=== PATIENT | male | born 1940 | race Caucasian/White ===

== ENCOUNTER 2017-06-05 15:00 | Inpatient (IN) ==
[2017-06-05 15:48] LABS: Basophils % 0.4 % (0.0-0.8); Eosinophils # 0.1 10*3/uL (0.0-0.87); Eosinophils % 4.2 % (0.00-10.9); Immature Granulocytes % 2.1 %; Immature Granulocytes Absolute 0.05 #; Lymphocytes # 1.7 10*3/uL (1.4-4.0); Lymphocytes % 73.4 % (21.2-54.2); Mean Corpuscular HGB Conc 33.9 GM/DL (32-36); Mean Corpuscular Hemoglobin 40 PG (27-34); Mean Corpuscular Volume 118.7 FL (87-102); Mean Platelet Volume 12.5 FL (9.6-12.0); Monocytes # 0.1 10*3/uL (0.11-0.8); Monocytes % 3.8 % (1.7-12.7); NRBC # 0.02 10*3/uL; Neutrophils # 0.4 10*3/uL (1.4-7.4); Neutrophils % 16.1 % (38.7-73.9); Platelet Count 51 T/CUMM (130-400); Red Blood Count 1.39 MC/CUMM (3.8-5.5); Red Cell Distribution Width 16.8 % (9.3-17.3); White Blood Count 2.4 T/CUMM (4-12)
[2017-06-05 15:52] LABS: Hemoglobin 5.6 GM/DL (14.0-18.0)
[2017-06-05 15:53] LABS: Hematocrit 16.5 VOL% (42.0-52.0)
--- NOTE | 2017-06-05 16:06 | XRay Report ---
Exam: XR chest 2V Indication: Shortness of breath Comparison study: November 22, 2012 chest radiograph Findings: Lungs are hyperexpanded with diffuse mild interstitial prominence and focal opacity/scarring within the lateral left upper lobe. The heart, mediastinum and bony structures are stable from prior. Atherosclerotic changes of the thoracic aorta appears similar to prior. On the lateral view, there are posterior basilar opacities and mild elevation of the left hemidiaphragm, which is essentially unchanged. There is no focal consolidation, pneumothorax or pleural effusion identified. Impression: Diffuse interstitial scarring changes with focal scarring in the lateral left upper lobe and left lung base which appears essentially unchanged from prior. No other significant interval change or evidence of acute disease. PROCEDURE INTERPRETED AT [facility] DEPARTMENT OF RADIOLOGY Final Report Signed by: Bandar Patterson
[2017-06-05 16:17] LABS: Albumin 3.8 G/DL (3.4-5.0); Bilirubin,Total 0.6 MG/DL (0.2-1.0); Calcium 9.1 MG/DL (8.5-10.1); Magnesium 2.8 MG/DL (1.8-2.4); Osmolality,Calculated 282.7 MOS/KG (273-304); Potassium 5.1 MMOL/L (3.5-5.1); Total Protein 7.4 G/DL (6.4-8.3)
[2017-06-05 16:18] LABS: Troponin I Only 0.062 NG/ML (0.00-0.045)
[2017-06-05 16:21] LABS: PT Patient Result 10.6 SECS
[2017-06-05 16:28] LABS: D-Dimer 6.1 MG/L FEU
--- NOTE | 2017-06-05 16:55 | Emergency Department Note ---
I, Bertha Holbrook, am scribing for, and in the presence of, Dean Daniel MD 16:41. IFredy Hans, MD, personally performed the services described in this documentation, ascribed by Bertha Holbrook in my presence, and it is both accurate and complete 654 . Arrival - Arrival Chief Complaint: Shortness of Breath Stated Complaint: O2 low/body ache/dizziness ED Nursing Triage Note: pt reports has been sob for awhile. was seen at [facility] today and o2 sats were low and they sent pt over to er. pt denies any pain reports some body aches. pt reports sob worse on exertion. pt family reports increased weakness over the past two years. o2 sats in triage are 100j percent.pt reports near syncope for several weeks too. Mode of Arrival: Ambulatory Limitations: No Limitations Source: Patient Time Seen by Provider: 06/05/17 16:11 - History of Present Illness HPI Narrative: Pt is a 77 y/o male who came to ED with c/o weakness, dizziness, lower extremities numbness/abnormal gait that has been ongoing for 2 years but has worsened recently. Pt has only been seen only at OR that told him to increase PO intake, but states he does not have a PCP. Sister in law notes his gait is slow especially at an incline and usually unsteady due to dizziness. Pt sits with head between his legs to resolve his dizziness. Pt states he has had some weight loss of about 10 lbs in a year, decreased appetite, and chronic low SHAILA, but denies having, hematemesis, melena, or hematuria or abdomen pain. Pt is a long time smoker and usually half a pack to ppd. PMHx of pericardititis, 35 years ago abdomen surgery for nerve wrapped around intestines but no part of stomach removed, per pt. Onset (ago): year(s) Consistency: constant Severity: moderate Severity scale (1-10): 5 Quality: other (weakness) Allergies/Adverse Reactions: Allergies Allergy/AdvReac Type Severity Reaction Status Date / Time Iodinated Contrast Media - Allergy Unknown/Unable Verified 06/05/17 15:20 Oral and to obtain Review of System - Review of System 12 point system: reviewed and no additional remarkable complaints except as stated - Review of System Constitutional: Present: weakness. Absent: chills, fever Respiratory: Absent: respiratory distress Cardiovascular: Absent: chest pain Gastrointestinal: Present: other (decreased PO intake). Absent: abdominal pain , nausea, vomiting, hematemesis, melena Genitourinary male: Absent: hematuria Musculoskeletal: Absent: arm pain, neck pain Skin: Absent: rash Neurological: Present: abnormal gait, other (dizziness). Absent: headache, confusion, vertigo Medical,Surgical,& Family Hx - Medical History Cardio: History of: Hypertension, Cardiovascular Problems (pericarditis) - Surgical History Cardiac Surgeries: Sugical HX of: Cardiac Surgery (surgery for pericarditis 30 years ago) - Social History Smoking Status: Current every day smoker Marital Status: Single Functional capacity: independent ambulation Exam Vital Signs: Vital Signs Temperature 97.1 F L 06/05/17 15:12 Pulse Rate 75 06/05/17 15:12 Respiratory Rate 22 06/05/17 15:12 Blood Pressure 125/75 06/05/17 15:12 O2 Sat by Pulse Oximetry 100 06/05/17 15:12 - General General appearance: alert, in no apparent distress - Head Head exam: Present: atraumatic, normocephalic - Eye Eye exam: Present: PERRL, EOMI, other (pale conjunctiva) - ENT ENT exam: Present: mucous membranes moist. Absent: mucous membranes dry - Neck Neck exam: Present: full ROM, trachea midline - Chest Chest inspection: Present: symmetric chest wall rise - Respiratory Respiratory exam: Present: normal lung sounds bilaterally. Absent: respiratory distress - Cardiovascular Cardiovascular exam: Present: regular rate, normal rhythm, normal heart sounds - Extremities Exam Extremities exam: Present: full ROM. Absent: tenderness, pedal edema - Neurological Exam Neurological exam: Present: alert, oriented X3, CN II-XII intact. Absent: motor sensory deficit - Psychiatric Psychiatric exam: Present: normal affect, normal mood - Skin Skin exam: Present: warm, dry Course Course Narrative: This patient was evaluated with lab work as well as EKG and chest x-ray. He had pancytopenia on his lab work and a macrocytic anemia with hemoglobin of 5.6. His lab work was also notable for an elevated d-dimer and elevated creatinine and a mildly elevated troponin which was minimally elevated and probably trivial with his creatinine elevation. EKG showed some ST depressions in lead II and V6 but no ST elevations. Patient is not having chest pain. Patient is not complaining of shortness of breath and has 100% oxygen saturation on room air. I do not recommend a CT angiogram of the chest given the low suspicion for PE and kidney dysfunction which would be worsened with IV contrast. The patient's symptoms are likely due to his severe anemia and I have discussed all of his lab work and his presentation with hospitalist on- call agreed to come and see him for admission. I did do a rectal exam which was guaiac negative. The patient does have a history of gastric surgery and certainly if he had a gastric resection he could have macrocytic anemia related to vitamin deficiency such as B12 but I will leave all this for the hospitalist to sort out what he is in the hospital. He has no leg swelling that would benefit from duplex ultrasound Results - Labs CBC & BMP: 06/05/17 15:25 06/05/17 15:25 Lab Results: I have reviewed the patients labs Labs: Laboratory Tests 06/05/17 06/05/17 06/05/17 15:25 15:25 15:25 WBC 2.4 L RBC 1.39 L Hgb 5.6 L* Hct 16.5 L* MCV 118.7 H MCH 40 H Plt Count 51 L MPV 12.5 H Neut % (Auto) 16.1 L Lymph % (Auto) 73.4 H Neut # (Auto) 0.4 L [place] # (Auto) 0.1 L INR 1.0 PT Patient/Control Mix 10.6 D-Dimer, Quantitative 6.1 Circ Anticoag PTT 34.0 Sodium 138 Potassium 5.1 Chloride 108 H Carbon Dioxide 23 BUN 36 H Creatinine 2.50 H GFR Calculation 25 Glucose 93 Magnesium 2.8 H AST 10 ALT 13 L Troponin I 0.062 H Globulin 3.6 H Albumin/Globulin Ratio 1.0 L - Diagnostic Findings Procedure: Chest x-ray: report reviewed by me (Diffuse interstitial scarring changes with focal scarring in the lateral left upper lobe and left lung base which appears essentially unchanged from prior. No other significant interval change or evidence of acute disease.) Disposition Clinical Impression: Symptomatic anemia Case discussed with: patient, patient's family Disposition: Still a Patient Condition: Stable Time of Disposition: 16:54
[2017-06-05 16:57] LABS: Eosinophils 5 % (0-10); Lymphocytes 70 % (20-55); Segmented Neutrophils 22 % (50-85); Total Cells Counted 100
[2017-06-05 16:58] LABS: Hypochromasia 2+; Microcytosis 2+; Platelet Estimate Decreased
[2017-06-05] MEDS ORDERED: SODIUM CHLORIDE 0.9% 250 ML IV PRN ×2 (17:58→20:27)
[2017-06-05] MEDS ORDERED: ONDANSETRON 4 MG/2 ML VIAL IV PRN (17:58)
[2017-06-05 18:46] LABS: Free T4 (Free Thyroxine) 1.21 NG/DL (0.76-1.46); Thyroid Stimulating Hormone 2.04 uIU/ml (0.358-3.74)
--- NOTE | 2017-06-05 18:46 | Hospitalist History & Physical ---
Assessment and Plan - Time spent with patient Time spent with patient: Greater than 30 minutes (1) Symptomatic anemia Status: Acute Assessment and plan: H&H 5 and 16. Type and screen. Order and transfuse 2 units of packed red blood cells. Anemia workup to include B12, folate, LDH, TSH and free T4, recheck count. Continue IV fluids. Current Visit: Yes (2) Pancytopenia Status: Acute Current Visit: Yes History of Present Illness Chief complaint: generalized fatigue, PCP referral History of present illness: Mr. Mann is a 77 year old white male with a past medical history significant for hypotension, pericarditis and tobacco use who presents to the ED today [facility] for low oxygen saturation and generalized fatigue. Patient reports this fatigue has been ongoing for about two years with associated dizziness, weakness, lower extremity numbness and abnormal gait. Patient notes that dizziness generally resolves with rest. He confirms some weight loss, decreased appetite. He denies headache, blurry vision, hematemasis , melena, hematuria, abdominal pain, nausea or vomiting, or syncope. He reports a smoking history of 1/2 pack to 1 ppd since the age of 17. On admission, his vitals are stable, however he is pancytopenic and anemic with H&H of 5.6 and 16.5. The case has been discussed with Dr. Daniel, ER physician, and Dr. Casanova , admitting physician, and the patient will be admitted to the hospital medicine service for further evaluation and treatment. CODE STATUS was discussed ; patient is a full code. Home medications have been reviewed and reconciled. Allergies Allergy/AdvReac Type Severity Reaction Status Date / Time Iodinated Contrast Media - Allergy Unknown/Unable Verified 06/05/17 15:20 Oral and to obtain Medical,Surgical,& Family Hx - Medical History Cardio: History of: Hypertension, Cardiovascular Problems (pericarditis) - Surgical History Cardiac Surgeries: Sugical HX of: Cardiac Surgery (surgery for pericarditis 30 years ago) - Family History Family History: Reports;: Family Heart Disease, Family Hypertension - Social History Smoking Status: Current every day smoker Frequency of Alcohol Use: None Type of Drug Use: None Marital Status: Single Lives With:: Sibling Functional capacity: independent ambulation 12 point system: reviewed and no additional remarkable complaints except as stated Exam - Constitutional Vitals: Period Temp Pulse Resp BP Sys/Gardner Pulse Ox Last 24 Hr 97.1 F-97.1 F 64-75 18-22 106-127/47-76 99-100 Exam: General appearance: normal weight, no acute distress - Head Head exam: Present: normocephalic, atraumatic - Eye Eye exam: Present: EOMI, pale conjunctiva Absent: conjunctival injection, nystagmus Pupils: Present: FRAN, normal accommodation - ENT ENT exam: Present: normal exam, normal external ear exam - Neck Neck exam: Present: normal inspection. Absent: lymphadenopathy, tenderness, thyromegaly - Respiratory Respiratory exam: Present: clear to auscultation bilaterally. Absent: rales, rhonchi, wheezes - Cardiovascular Cardiovascular exam: Present: regular rate and rhythm. Absent: carotid bruit, gallop, rubs - GI/Abdominal GI/Abdominal exam: Present: normal bowel sounds. Absent: ascites, distended, mass - Extremities Exam Extremities exam: Present: normal inspection, normal capillary refill. Absent: edema - Back Exam Back exam: Absent: CVA tenderness (L), CVA tenderness (R) - Neurological Exam Neurological exam: Present: alert, oriented X3, CN II-XII intact, reflexes normal - Psychiatric Psychiatric exam: Present: normal affect, normal mood - Skin Skin exam: Present: normal color, warm, dry Results - Labs CBC & BMP: 06/05/17 15:25 06/05/17 15:25 Lab Results: I have reviewed the past 24 hour labs
[2017-06-05 19:11] LABS: % Iron Saturation 34.8 % (18-50); Ferritin 518.5 ng/ml (26-388)
[2017-06-05 20:16] LABS: Eosinophils # 0.1 10*3/uL (0.0-0.87); Eosinophils % 4.6 % (0.00-10.9); Lymphocytes # 2.4 10*3/uL (1.4-4.0); Lymphocytes % 80.1 % (21.2-54.2); Mean Corpuscular HGB Conc 31.7 GM/DL (32-36); Mean Corpuscular Hemoglobin 39 PG (27-34); Mean Corpuscular Volume 123.7 FL (87-102); Mean Platelet Volume 12.1 FL (9.6-12.0); Monocytes # 0.1 10*3/uL (0.11-0.8); Monocytes % 1.7 % (1.7-12.7); NRBC # 0.02 10*3/uL; Neutrophils # 0.4 10*3/uL (1.4-7.4); Neutrophils % 13.6 % (38.7-73.9); Platelet Count 41 T/CUMM (130-400); Red Blood Count 1.35 MC/CUMM (3.8-5.5); Red Cell Distribution Width 17.1 % (9.3-17.3)
[2017-06-05 20:24] LABS: Hemoglobin 5.3 GM/DL (14.0-18.0)
[2017-06-05 20:25] LABS: Hematocrit 16.7 VOL% (42.0-52.0)
[2017-06-05] MEDS: SODIUM CHLORIDE 0.9% 1,000 ML IV SCH (20:47)
[2017-06-05 20:56] LABS: Folate > 24.0 NG/ML (5.4-24.0); Vitamin B12 382 PG/ML (211-911)
[2017-06-05 21:36] LABS: Sedimentation Rate-Westergren 145 MM/HR (0-20)
[2017-06-05 21:53] LABS: Eosinophils 5 % (0-10); Hypochromasia 2+; Lymphocytes 74 % (20-55); Microcytosis 2+; Nucleated Red Blood Cells 1 (0-5); Platelet Estimate Decreased; Segmented Neutrophils 19 % (50-85); Total Cells Counted 100
[2017-06-05 21:54] LABS: Polychromasia Slight
--- NOTE | 2017-06-06 05:53 | EKG Report ---
Stationary ECG Study [facility] ER Test Date: 06/05/2017 3:20:19 PM Pat Name: MOHAMUD FRAGA Department: Room: 428 Gender: M Loan Consultant: : 1940 Requested by: Dean Daniel Order Number: [id number] Reading MD: BHUMIKA LACKEY Intervals [place] Rate: 75 P: 72 NH: 154 QRS: 82 QRSD: 111 T: -59 QT: 379 QTc: 408 Interpretive Statements SINUS RHYTHM Electronically Signed On 06-06-17 13:52:44 CDT by BHUMIKA LACKEY [email or web address]
[2017-06-06 07:06] LABS: Eosinophils # 0.1 10*3/uL (0.0-0.87); Eosinophils % 6.6 % (0.00-10.9); Hematocrit 20.4 VOL% (42.0-52.0); Immature Granulocytes % 0.5 %; Immature Granulocytes Absolute 0.01 #; Lymphocytes # 1.4 10*3/uL (1.4-4.0); Mean Corpuscular HGB Conc 33.3 GM/DL (32-36); Mean Corpuscular Hemoglobin 35 PG (27-34); Mean Corpuscular Volume 106.3 FL (87-102); Mean Platelet Volume 12.2 FL (9.6-12.0); Monocytes % 1.5 % (1.7-12.7); Neutrophils # 0.4 10*3/uL (1.4-7.4); Neutrophils % 18.8 % (38.7-73.9); Platelet Count 37 T/CUMM (130-400); Red Cell Distribution Width 22.9 % (9.3-17.3)
[2017-06-06 07:18] LABS: Hemoglobin 6.8 GM/DL (14.0-18.0); Red Blood Count 1.92 MC/CUMM (3.8-5.5)
[2017-06-06 07:20] LABS: Lymphocytes % 72.6 % (21.2-54.2)
[2017-06-06] MEDS ORDERED: hydrOXYzine HCL 10 MG TABLET PO PRN (07:29)
[2017-06-06 07:35] LABS: Atypical Lymphocytes Few; Eosinophils 4 % (0-10); Hypochromasia 1+; Lymphocytes 69 % (20-55); Macrocytosis 1+; Platelet Estimate Decreased; Segmented Neutrophils 25 % (50-85); Total Cells Counted 100
[2017-06-06 07:39] LABS: Calcium 8.4 MG/DL (8.5-10.1); Osmolality,Calculated 287.3 MOS/KG (273-304); Potassium 5.6 MMOL/L (3.5-5.1)
--- NOTE | 2017-06-06 07:41 | Physician Query Form ---
CLICK EDIT DOCUMENT TO SELECT QUERY ANSWER --> OK --> SIGN Minoo Huggins RN, CCDS Certified Clinical Prototype Carpenter W) [phone] (f) [phone] [email or web address] PROVIDERS: Make your selection(s) from the choices in EACH section by typing an "x" and enter comments in the comment section. Please use your independent medical judgment in providing your response. This request does not imply that any particular answer is desired or expected. CLINICAL INDICATORS: (Providers should not edit this section) The medical record indicates that the patient was admitted with anemia, creatinine 2.50#, GFR of 25# and the patient receiving 2 units of blood. ------- -----"kidney dysfunction which would be worsened with IV contrast" Clarify which of the following most accurately represents the patient's renal status: ( x) Acute kidney injury (non-traumatic) ( ) Acute renal failure ( ) Acute renal failure with underlying Chronic Kidney Disease (CKD) - please provide stage below ( ) Acute renal failure with pathological renal lesion ( ) Acute renal failure with necrosis ( ) tubular ( ) medullary ( ) cortical ( ) CKD - please provide stage below ( ) End Stage Renal Disease ( ) Acute interstitial nephritis ( ) Hepatorenal syndrome ( ) Other, please specify: ( ) Clinically unable to determine Chronic Kidney Disease Stages Source: National Kidney Disease Foundation ( ) Stage I (eGFR > or = 90) ( ) Stage II (eGFR 60 - 89) ( ) Stage III (eGFR 30 - 59) ( ) Stage IV (eGFR 15 - 29) ( ) Stage V (eGFR < 15 or dialysis) COMMENTS: PLEASE ALSO DOCUMENT RESPONSE IN PROGRESS NOTES AND/OR DISCHARGE SUMMARY Use of terms such as suspected, likely, or probable (associated with a specific diagnosis that is being evaluated, monitored, or treated as if it exists) are acceptable and can be restated in the discharge summary if not ruled out. MTDD
[2017-06-06] MEDS ORDERED: CYANOCOBALAMIN 1000 MCG/1 ML VIAL IM ONE (07:58)
[2017-06-06 08:48] LABS: Hemoglobin A1 (Alkaline) 97.8 % (96.5-98.5); Hemoglobin A2 (Alkaline) 2.2 % (1.5-3.5)
--- NOTE | 2017-06-06 08:55 | Oncology Progress Note ---
Oncology Subjective PN Interval history: Patient with significant pancytopenia, dyspnea on exertion, weight loss and night sweats. He has no significant alcohol intake. History was obtained primarily from his [id number] who is helped care for him for the last 12-15 months. Labs indicate normal B12 and folic acid levels. Given the pancytopenia we will therefore proceed with bone marrow aspiration and biopsy as quickly as possible. I feel no obvious splenomegaly or cervical or axillary lymphadenopathy on physical examination Exam - Constitutional Vitals: Period Temp Pulse Resp BP Sys/Gardner Pulse Ox Last 24 Hr 96.2 F-99.2 F 64-92 18-22 90-130/47-83 90-100 Results - Labs CBC & BMP: 06/06/17 06:48 06/06/17 06:48
[2017-06-06] MEDS: CYANOCOBALAMIN 500 MCG TABLET PO SCH (09:19)
[2017-06-06] MEDS: SODIUM CHLORIDE 0.9% 1,000 ML IV SCH (09:19)
[2017-06-06] MEDS: PANTOPRAZOLE 40 MG TABLET PO SCH (09:19)
[2017-06-06] MEDS: FLUDROCORTISONE 0.1 MG TABLET PO SCH (09:19)
[2017-06-06 11:17] LABS: Albumin (SPE) 3.8 G/DL (3.2-5.3); Albumin (SPE) Rel % 59.1 %; Alpha 1 (SPE) 0.2 G/DL (0.1-0.4); Alpha 1 (SPE) Rel % 3.8 %; Alpha 2 (SPE) 0.7 G/DL (0.4-1.0); Beta (SPE) 0.7 G/DL (0.5-1.1); Beta (SPE) Rel % 10.7 %; Gamma (SPE) Rel % 15.4 %; Total Protein (Chem) 6.4 G/DL (6.4-8.3)
--- NOTE | 2017-06-06 14:57 | Hospitalist Progress Note ---
Assessment and Plan (1) Symptomatic anemia Status: Acute Assessment and plan: Transfuse an additional 2 units of packed red blood cells for hemoglobin of 6.8. Current Visit: Yes (2) Pancytopenia Status: Acute Assessment and plan: Follow-up bone marrow biopsy in a.m. SPEP and UPEP ordered. Current Visit: Yes Hospitalist: Subjective Interval history: Patient seen and examined. No acute events overnight. Case discussed with nursing staff. Labs reviewed. Patient reports feeling a little bit better after receiving 2 units of packed red blood cells. Hematology consultation reviewed. Plan for bone marrow biopsy tomorrow. Exam - Constitutional Vitals: Period Temp Pulse Resp BP Sys/Gardner Pulse Ox Last 24 Hr 96.2 F-99.2 F 64-92 18-22 90-130/47-83 90-100 Exam: Constitutional System: No distress. No tremulousness. Head: Normocephalic, atraumatic. Ears, Nose and Throat System: No pain or tenderness. No epistaxis or discharge Eyes System: Pupils equal, round, and reactive. Extraocular muscles intact. Neck: Supple, without adenopathy, No jugular venous distention. No thyromegaly, neck mass, or prior surgery apparent. Respiratory System: Chest clear to auscultation. Cardiovascular System: Heart with regular rate and rhythm. No murmur. GI System: Abdomen soft, nontender. Normo active bowel sounds present. Musculoskeletal System: limbs with no pedal edema. Full distal pulses. Normal capillary refill. Neurological System: No discernable sensory deficit. No aphasia Psychiatric System: Conversation is rational Results - Labs CBC & BMP: 06/06/17 06:48 06/06/17 06:48 Lab Results: I have reviewed the past 24 hour labs
[2017-06-06] MEDS: FAMOTIDINE 20 MG TABLET PO SCH (20:13)
[2017-06-07] MEDS: SODIUM CHLORIDE 0.9% 1,000 ML IV SCH (05:10)
[2017-06-07 06:43] LABS: Basophils % 0.5 % (0.0-0.8); Eosinophils # 0.1 10*3/uL (0.0-0.87); Eosinophils % 6.2 % (0.00-10.9); Hematocrit 27.4 VOL% (42.0-52.0); Hemoglobin 9.4 GM/DL (14.0-18.0); Lymphocytes # 1.4 10*3/uL (1.4-4.0); Lymphocytes % 70.6 % (21.2-54.2); Mean Corpuscular HGB Conc 34.3 GM/DL (32-36); Mean Corpuscular Hemoglobin 35 PG (27-34); Mean Corpuscular Volume 101.5 FL (87-102); Mean Platelet Volume 12.3 FL (9.6-12.0); Monocytes % 1.5 % (1.7-12.7); NRBC # 0.02 10*3/uL; Neutrophils # 0.4 10*3/uL (1.4-7.4); Neutrophils % 21.2 % (38.7-73.9); Red Cell Distribution Width 21.8 % (9.3-17.3); White Blood Count 1.9 T/CUMM (4-12)
[2017-06-07 07:08] LABS: Platelet Count 34 T/CUMM (130-400)
[2017-06-07 07:10] LABS: Calcium 8.2 MG/DL (8.5-10.1); Osmolality,Calculated 281.5 MOS/KG (273-304); Potassium 4.9 MMOL/L (3.5-5.1)
[2017-06-07 07:25] LABS: Atypical Lymphocytes Few; Eosinophils 5 % (0-10); Giant Platelets Few; Hypochromasia 1+; Lymphocytes 71 % (20-55); Microcytosis Slight; Ovalocytes Slight; Platelet Estimate Decreased; Segmented Neutrophils 22 % (50-85); Total Cells Counted 100
[2017-06-07] MEDS ORDERED: DIAZEPAM 5 MG TABLET PO ONE (08:00)
[2017-06-07] MEDS ORDERED: SODIUM CHLORIDE 0.9% 1,000 ML IV SCH (08:30)
--- NOTE | 2017-06-07 08:41 | Oncology Progress Note ---
Oncology Subjective PN Interval history: Bone marrow biopsy unable to be performed yesterday. Hopefully this will be performed today and results should return by Monday. The patient is resting in no acute distress. His platelet count does not need addressing today in terms of transfusion. He did receive red blood cells yesterday. His [id number] and his older sister were present and I discussed the case with the differential diagnosis including both leukemia or myelodysplasia Exam - Constitutional Vitals: Period Temp Pulse Resp BP Sys/Gardner Pulse Ox Last 24 Hr 98.1 F-99.0 F 61-71 16-20 111-147/61-77 90-98 Results - Labs CBC & BMP: 06/07/17 04:50 06/07/17 04:50
[2017-06-07] MEDS ORDERED: HEPARIN 1,000 UNIT/1 ML VIAL ONE (08:49)
[2017-06-07] MEDS ORDERED: FUROSEMIDE 40 MG/4 ML VIAL ONE (09:02)
[2017-06-07] MEDS ORDERED: FUROSEMIDE 40 MG/4 ML VIAL IV ONE ×2 (09:05→18:00)
--- NOTE | 2017-06-07 09:35 | XRay Report ---
History: Shortness of breath Date: 06/07/2017 at 9:00 AM Study: Chest x-ray AP portable Comparison exam: June 05, 2017 The cardiac silhouette measures slightly larger than on the comparison study. The pulmonary vasculature is slightly prominent and ill-defined. The mediastinal contours are stable. There is patchy and hazy pulmonary edema in the mid to lower lungs bilaterally as before. There is trace bilateral pleural effusion. There is some plaque-like pleural calcification in the mid to lower left hemithorax as before. Osseous structures are unchanged. Impression: Developing pulmonary edema and trace bilateral pleural effusion since the previous study, compatible with changes of CHF PROCEDURE INTERPRETED AT [facility] DEPARTMENT OF RADIOLOGY Final Report Signed by: Dr. Nina Swain
--- NOTE | 2017-06-07 09:52 | Hospitalist Progress Note ---
Assessment and Plan (1) Pulmonary edema Status: Acute Assessment and plan: Add IV Lasix. Stop IV fluids. Monitor closely. BiPAP as needed. Current Visit: Yes Qualifiers: Chronicity: acute Qualified Code(s): J81.0 - Acute pulmonary edema (2) Acute respiratory distress Status: Acute Assessment and plan: Secondary to acute pulmonary edema secondary to fluid overload related to blood transfusions. Treat with IV Lasix and oxygen. Current Visit: Yes (3) Symptomatic anemia Status: Acute Assessment and plan: The patient has received a total of 4 units of packed red blood cells. Hemoglobin and hematocrit are stable. Plan for bone marrow biopsy. Current Visit: Yes (4) Pancytopenia Status: Acute Assessment and plan: Follow-up bone marrow biopsy in a.m. SPEP and UPEP ordered. Current Visit: Yes Hospitalist: Subjective Interval history: Called for patient with rapid response and hypoxia with acute respiratory distress. Patient found to have acute pulmonary edema. Oxygen saturations were low in the 70s and 80s. He was promptly placed on 100% nonrebreather mask and given IV Lasix. Symptoms are improving. Chest x-ray shows bilateral pulmonary edema. This is likely related to his blood transfusions of 4 units over the last 36 hours and continuous IV fluids. IV fluids have been discontinued and Lasix has been initiated. We will continue to monitor closely on the floor. Exam - Constitutional Vitals: Period Temp Pulse Resp BP Sys/Gardner Pulse Ox Last 24 Hr 97.9 F-99.0 F 61-71 16-20 111-147/61-77 90-98 Exam: Constitutional System: Severe distress. No tremulousness. Shortness of breath and hypoxia noted Head: Normocephalic, atraumatic. Ears, Nose and Throat System: No pain or tenderness. No epistaxis or discharge Eyes System: Pupils equal, round, and reactive. Extraocular muscles intact. Neck: Supple, without adenopathy, No jugular venous distention. No thyromegaly, neck mass, or prior surgery apparent. Respiratory System: Rales bilaterally. Cardiovascular System: Tachycardic. no murmur. GI System: Abdomen soft, nontender. Normo active bowel sounds present. Musculoskeletal System: limbs with no pedal edema. Full distal pulses. Normal capillary refill. Neurological System: No discernable sensory deficit. No aphasia Psychiatric System: Conversation is rational Results - Labs CBC & BMP: 06/07/17 04:50 06/07/17 04:50 Lab Results: I have reviewed the past 24 hour labs - Diagnostic Findings Procedure: Chest x-ray: image reviewed by me, report reviewed by me (Acute pulmonary edema)
[2017-06-07] MEDS: PANTOPRAZOLE 40 MG TABLET PO SCH (10:02)
[2017-06-07] MEDS: CYANOCOBALAMIN 500 MCG TABLET PO SCH (10:02)
[2017-06-07] MEDS: FLUDROCORTISONE 0.1 MG TABLET PO SCH (10:03)
[2017-06-07] MEDS ORDERED: HEPARIN 5,000 UNIT/1 ML VIAL ONE (11:04)
[2017-06-07 17:32] LABS: Collection Time,Urine 24 HOURS; Total Protein 24 Hr Ur Result 330 MG/24HR (0-149.1); Total Volume,Urine 3000 ML (400-2000)
--- NOTE | 2017-06-07 17:46 | Post Interventional Procedure ---
Pre-op diagnosis: anemia/pancytopenia Post-op diagnosis: same Procedure: bone marrow aspiration and biopsy Contrast: none Flouroscopy: 0.9 min Radiologist: Bandar Patterson Anesthesia: local Specimens: other (12 mL BM aspirate and 2 cm core sent to path) Estimated blood loss: none Complications: none Condition: stable Description/Findings: right iliac crest targeted and biopsy done without issues patient tolerated well Assessment and Plan - Time spent with patient Time spent with patient: Less than 30 minutes
--- NOTE | 2017-06-07 17:50 | Interventional Radiology Rpt ---
IR Bone Marrow Biopsy Clinical Information: 77-year-old male with pancytopenia. Bone marrow biopsy is requested for further analysis Physician[s]: Dr. Patterson Procedure: The patient was advised of the benefits, risks, and alternatives of the procedure and informed consent was obtained. A time out was performed with verification of the patient's name, MRN, site of procedure, and type of procedure to be performed. The patient was positioned in the prone position on the angiographic table. The anticipated puncture site was prepped and draped in the usual sterile fashion. A machine plaster mixer radiograph reveals no relevant abnormality. Local anesthesia was used for the procedure. The right posterior superior iliac crest was accessed with the needle. 12 mL of marrow aspirate was obtained and mixed with heparin. The needle was repositioned to a separate access site and a 2 cm marrow core was obtained. All samples were submitted for pathologic analysis. The patient tolerated the procedure well and was returned to the post procedure monitoring area in stable condition. EBL: < 5 mL. Complications: None. Total fluoroscopy time: 0.9 minutes Total number of images for this study: 27 Conclusion: Technically successful bone marrow aspiration and biopsy. PROCEDURE INTERPRETED AT [facility] DEPARTMENT OF RADIOLOGY Final Report Signed by: Bandar Patterson
[2017-06-07] MEDS: FAMOTIDINE 20 MG TABLET PO SCH (20:08)
[2017-06-07] MEDS ORDERED: POTASSIUM CHLORIDE 20 MEQ TABLET PO ONE (20:52)
[2017-06-08 04:49] LABS: Basophils % 0.6 % (0.0-0.8); Eosinophils # 0.1 10*3/uL (0.0-0.87); Eosinophils % 6.7 % (0.00-10.9); Hematocrit 28.1 VOL% (42.0-52.0); Hemoglobin 9.8 GM/DL (14.0-18.0); Lymphocytes # 1.2 10*3/uL (1.4-4.0); Lymphocytes % 65.9 % (21.2-54.2); Mean Corpuscular HGB Conc 34.9 GM/DL (32-36); Mean Corpuscular Hemoglobin 35 PG (27-34); Mean Platelet Volume 11.5 FL (9.6-12.0); Monocytes % 1.1 % (1.7-12.7); NRBC # 0.04 10*3/uL; Neutrophils # 0.5 10*3/uL (1.4-7.4); Neutrophils % 25.7 % (38.7-73.9); Red Blood Count 2.81 MC/CUMM (3.8-5.5); Red Cell Distribution Width 21.1 % (9.3-17.3); White Blood Count 1.8 T/CUMM (4-12)
[2017-06-08 04:57] LABS: Platelet Count 35 T/CUMM (130-400)
[2017-06-08 05:31] LABS: Calcium 8.8 MG/DL (8.5-10.1); Osmolality,Calculated 284.5 MOS/KG (273-304); Potassium 4.6 MMOL/L (3.5-5.1)
[2017-06-08 05:39] LABS: Eosinophils 8 % (0-10); Lymphocytes 62 % (20-55); Nucleated Red Blood Cells 1 (0-5); Total Cells Counted 100
[2017-06-08 05:41] LABS: Anisocytosis 1+; Microcytosis 1+; Ovalocytes Few; Platelet Estimate Decreased; Polychromasia Few
[2017-06-08 05:42] LABS: Hypochromasia Slight
[2017-06-08 05:43] LABS: Segmented Neutrophils 26 % (50-85)
[2017-06-08] MEDS: FLUDROCORTISONE 0.1 MG TABLET PO SCH (08:57)
[2017-06-08] MEDS: PANTOPRAZOLE 40 MG TABLET PO SCH (08:58)
[2017-06-08] MEDS: CYANOCOBALAMIN 500 MCG TABLET PO SCH (08:58)
--- NOTE | 2017-06-08 09:57 | Discharge Summary ---
Hospital Course - Hospital Course Hospital Course: Mr. Mann is a 77-year-old white male that was admitted from the emergency department for symptomatic anemia. He was found to have pancytopenia and underwent an evaluation by hematology. He received 4 units of packed red blood cell transfusion. In the process of his hospitalization and transfusion as well as hydration, the patient experienced pulmonary edema with acute respiratory distress. He required 2 doses of IV Lasix and has improved significantly. He has adequately diuresed and is back to his baseline. A serum protein electrophoresis as well as a urine protein electrophoresis were collected and sent off. A bone marrow biopsy was performed yesterday, May and results are pending. The patient is being followed by Dr. Miramontes and will follow up with him in his office next week. His hemoglobin is stable at 9.8. He has chronic kidney disease stage III with a baseline creatinine of approximately 1.9. His other medications were reviewed and reconciled. No changes were made. He remains a full code. - Time spent with patient Time with patient DS: Greater than 30 minutes (Total discharge time for this patient, including [id number] time, clinical documentation, medication reconciliation, and discharge planning was 39 minutes.) Diagnosis - Discharge Diagnosis (1) Pulmonary edema Status: Suspected (2) Acute respiratory distress Status: Suspected (3) Symptomatic anemia Status: Suspected (4) Pancytopenia Status: Chronic (5) CKD (chronic kidney disease) stage 3, GFR 30-59 ml/min Status: Chronic Discharge Plan - Discharge Data Disposition: Disch To Home/Self Care Condition at Discharge: Stable Discharge Diet: advance to your usual diet Activity: resume usual activities as tolerated Hygiene: no restrictions Weight Bearing at Discharge: full weight bearing Driving: no restrictions Contact your physician if you experience:: fever over 101, Shortness of breath, Bleeding - Discharge Medications Continue Simvastatin 40 mg PO DAILY raNITIdine HCl [Ranitidine HCl] 150 tablet PO BEDTIME Fludrocortisone [Florinef] 0.1 mg PO DAILY hydrOXYzine HCl [Hydroxyzine HCl] 10 mg PO Q8HR PRN PRN Reason: Itching - Follow Up or Referral Follow Up: Kirill Miramontes MD [Physician] - 1 Week - Forms/Instructions Exam - Constitutional Vitals: Period Temp Pulse Resp BP Sys/Gardner Pulse Ox Last 24 Hr 96.9 F-98.2 F 66-94 18-22 100-146/55-93 93-99 Discharge Results Procedures and tests throughout hospitalization: Pending Orders 06/06/17 08:10 Serum Protein Electrophoresis Routine Urine Protein Electrophoresis Routine 06/06/17 23:00 Occult Blood, Stool Routine 06/09/17 04:00 CBC [Comp Blood Count Auto Diff] IN AM 06/10/17 04:00 CBC [Comp Blood Count Auto Diff] IN AM 06/11/17 04:00 CBC [Comp Blood Count Auto Diff] IN AM 06/12/17 04:00 CBC [Comp Blood Count Auto Diff] IN AM 06/13/17 04:00 CBC [Comp Blood Count Auto Diff] IN AM 06/14/17 04:00 CBC [Comp Blood Count Auto Diff] IN AM Labs on day of discharge: Labs from last 24 hours 06/08/17 06/08/17 06/07/17 04:20 04:20 11:45 WBC 1.8 L RBC 2.81 L Hgb 9.8 L Hct 28.1 L MCV 100.0 MCH 35 H MCHC 34.9 RDW 21.1 H Plt Count 35 L* MPV 11.5 Neut % (Auto) 25.7 L Lymph % (Auto) 65.9 H [place] % (Auto) 1.1 L Eos % (Auto) 6.7 Baso % (Auto) 0.6 Neut # (Auto) 0.5 L Lymph # (Auto) 1.2 L [place] # (Auto) 0.0 L Eos # (Auto) 0.1 Baso # (Auto) 0.0 Total Counted 100 Immature Gran % 0.0 Nucleated RBC % 2.2 Immature Gran # 0.00 Segmented Neutrophils 26 L Lymphocytes 62 H Monocytes 4 Eosinophils 8 Nucleated RBCs 1 Nucleated RBCs # 0.04 Platelet Estimate Decreased Immature Plt Fraction 0.0 Polychromasia Few Hypochromasia Slight Anisocytosis 1+ Microcytosis 1+ Ovalocytes Few Sodium 139 Potassium 4.6 Chloride 109 H Carbon Dioxide 21 Anion Gap 13.6 BUN 35 H Creatinine 1.90 H GFR Calculation 34 BUN/Creatinine Ratio 18.00 Glucose 96 Calculated Osmolality 284.5 Calcium 8.8 Transferrin Urine Collection Time 24 Urine Total Volume 3000 H Ur Total Protein 24 Hr 330 H 06/05/17 15:25 WBC RBC Hgb Hct MCV MCH MCHC RDW Plt Count MPV Neut % (Auto) Lymph % (Auto) [place] % (Auto) Eos % (Auto) Baso % (Auto) Neut # (Auto) Lymph # (Auto) [place] # (Auto) Eos # (Auto) Baso # (Auto) Total Counted Immature Gran % Nucleated RBC % Immature Gran # Segmented Neutrophils Lymphocytes Monocytes Eosinophils Nucleated RBCs Nucleated RBCs # Platelet Estimate Immature Plt Fraction Polychromasia Hypochromasia Anisocytosis Microcytosis Ovalocytes Sodium Potassium Chloride Carbon Dioxide Anion Gap BUN Creatinine GFR Calculation BUN/Creatinine Ratio Glucose Calculated Osmolality Calcium Transferrin 233 Urine Collection Time Urine Total Volume Ur Total Protein 24 Hr DS: Provider Date of admission: 06/05/17 17:59 Primary care physician: . No PCP Attending physician on admission: Kirill Casanova MD Consults: 06/05/17 21:58 Consult to Dietitian [CONS] Routine Reason for Dietitian: Dietary Consult Consult Comment: recent weight loss without trying 06/06/17 07:31 Consult to Physician [CONS] Routine Comment: anemia/pancytopenia Consulting Provider: Kirill Miramontes Consulting Provider Notified: Yes When should Consulting Provider be notified: Now Consult to Specialist Group: Oncology When should Consulting Provider be notified: Now Person Notified: DR MIRAMONTES NOTIFIED OF CONSULT Date Notified: 06/06/17 Time Notified: 08:10 Discharging clinician: Yony Burns MD Expected date of discharge: 06/08/17
[2017-06-08 11:52] VITALS: BP 119/75
[2017-06-08 13:23] LABS: 24 Hr Protein (Bench) 330 MG/24HR (0-149.1)
--- NOTE | 2017-06-13 14:59 | Physician Query Form ---
CLICK EDIT DOCUMENT TO SELECT QUERY ANSWER --> OK --> SIGN Zeinab Jacobson RN, CCDS Certified Clinical [employer] Att[employer] W) [phone] (f) [phone] [email or web address] PROVIDERS: Make your selection(s) from the choices in EACH section by typing an "x" and enter comments in the comment section. Please use your independent medical judgment in providing your response. This request does not imply that any particular answer is desired or expected. CLINICAL INDICATORS: (Providers should not edit this section) Documented acute respiratory distress, with acute pulmonary edema, "Called for patient with rapid response and hypoxia", O2 Sats low in the 70's and 80's with 100% NRB mask, "severe distress" If possible, please further clarify the type and acuity of respiratory diagnosis : ACUITY: (X ) Acute ( ) Chronic ( ) Acute on Chronic TYPE: (X ) Respiratory failure with hypoxia ( ) Respiratory failure with hypercapnia ( ) Respiratory distress only ( ) ARDS (Adult/Acute Respiratory Distress Syndrome) ( ) Other, please specify: ( ) Clinically unable to determine Recognized criteria for respiratory failure PH <7.35 or >7.45 PO2 <60 PCO2 >50 RR >24 O2 Sat <90% on RA or <95% on O2 Use of accessory muscles Unable to speak in full sentences Intubation is not required COMMENTS: Secondary to acute pulmonary edema. PLEASE ALSO DOCUMENT RESPONSE IN PROGRESS NOTES AND/OR DISCHARGE SUMMARY Use of terms such as suspected, likely, or probable (associated with a specific diagnosis that is being evaluated, monitored, or treated as if it exists) are acceptable and can be restated in the discharge summary if not ruled out. MTDD
== END 2017-06-08 12:45 | disposition home or self-care (01) | DRG 808 ==
LOC: N.ED 15:00 → SUATTDRO 17:58 → N.EDINP 17:58 → N.4E 19:08
PROVIDERS: ADMIT Internal Medicine; ATTEND Family Medicine

== ENCOUNTER 2018-06-19 10:47 | Observation (INO) ==
[2018-06-19 11:45] LABS: INR 1.1; PT Patient Result 11.7 SECS; Partial Thromboplastin Time 34.7 SECS (0-40)
[2018-06-19 11:51] LABS: Basophils % 1.1 % (0.0-0.8); Hematocrit 24.2 VOL% (42.0-52.0); Hemoglobin 8.3 GM/DL (14.0-18.0); Lymphocytes # 0.7 10*3/uL (1.4-4.0); Lymphocytes % 71.3 % (21.2-54.2); Mean Corpuscular HGB Conc 34.3 GM/DL (32-36); Mean Corpuscular Hemoglobin 31 PG (27-34); Mean Corpuscular Volume 89.6 FL (87-102); Mean Platelet Volume 11.6 FL (9.6-12.0); Monocytes # 0.1 10*3/uL (0.11-0.8); Monocytes % 9.6 % (1.7-12.7); Neutrophils # 0.2 10*3/uL (1.4-7.4); Red Cell Distribution Width 13.6 % (9.3-17.3)
[2018-06-19 11:58] LABS: Albumin 1.9 G/DL (3.4-5.0); Bilirubin,Total 0.7 MG/DL (0.2-1.0); Calcium 8.1 MG/DL (8.5-10.1); Osmolality,Calculated 270.2 MOS/KG (273-304); Potassium 3.9 MMOL/L (3.5-5.1); Total Protein 7.4 G/DL (6.4-8.3)
[2018-06-19 12:01] LABS: White Blood Count 0.9 T/CUMM (4-12)
[2018-06-19 12:02] LABS: Platelet Count 20 T/CUMM (130-400)
[2018-06-19 12:26] LABS: Lymphocytes 70 % (20-55); Platelet Estimate Decreased; Segmented Neutrophils 20 % (50-85); Total Cells Counted 100
[2018-06-19 12:27] LABS: Hypochromasia 1+; Microcytosis Slight; Ovalocytes Slight
[2018-06-19 12:53] LABS: HIV Antigen/Antibody Result Nonreactive (Nonreactive); Hepatitis B Surface Ag Quant < 0.10 Index; Hepatitis B Surface Ag Result Negative (Negative); Hepatitis C Virus Ab Quant 0.17 Index; Hepatitis C Virus Ab Result Negative (Negative)
[2018-06-19] MEDS ORDERED: ONDANSETRON 4 MG/2 ML VIAL IV PRN (13:20)
[2018-06-19] MEDS ORDERED: ACETAMINOPHEN 325 MG TABLET PO PRN (13:20)
[2018-06-19] MEDS ORDERED: MORPHINE 4 MG/1 ML VIAL IV PRN (13:20)
[2018-06-19] MEDS ORDERED: hydrOXYzine HCL 10 MG TABLET PO PRN (13:22)
[2018-06-19 18:17] VITALS: BP 155/90
[2018-06-19] MEDS: MORPHINE 4 MG/1 ML VIAL IV PRN ×3 (20:39→23:54)
[2018-06-20] MEDS: LORazepam 2 MG/1 ML VIAL IV PRN ×5 (00:32→15:01)
[2018-06-20] MEDS: MORPHINE 4 MG/1 ML VIAL IV PRN ×6 (03:10→15:01)
[2018-06-20] MEDS ORDERED: FLUDROCORTISONE 0.1 MG TABLET PO SCH (09:00)
[2018-06-20] MEDS ORDERED: PANTOPRAZOLE 40 MG TABLET PO SCH (09:00)
== END 2018-06-20 15:19 | disposition hospice, home (50) ==
LOC: EDUNIT# → EDBD → N.EDINP 10:47 → N.ED 10:47 → N.4E 13:41
PROVIDERS: ADMIT Internal Medicine; ATTEND Internal Medicine